=== PATIENT | female | born 1990 | race Caucasian/White ===

== ENCOUNTER 2018-02-23 08:24 | Emergency (ER) | END 2018-02-23 10:10 | disposition home or self-care (01) ==

== ENCOUNTER 2018-05-17 22:49 | Emergency (ER) | END 2018-05-18 03:35 | disposition home or self-care (01) ==

== ENCOUNTER 2018-07-01 23:37 | Emergency (ER) | END 2018-07-02 05:08 | disposition home or self-care (01) ==

== ENCOUNTER 2018-09-09 11:11 | Emergency (ER) | END 2018-09-09 12:43 | disposition home or self-care (01) ==